=== PATIENT | male | born 1950 | race Caucasian/White ===

== ENCOUNTER 2017-06-01 16:38 | Inpatient (IN) | payer OTHER ==
[~2017-06-01] VITALS: Ht 182.9 cm; Wt 106.0 kg
--- NOTE | ~2017-06-01 | CO ---
Unit #: [id number] #: [id number] Patient: WILLIAM YUN [id number] [address] [address] [id number] I MR#: [id number] NAME: WILLIAM YUN. ROOM: 334 Age: 66 Sex: M Admission Date: 06/01/2017 : 1950 Attending Physician: Gerardo Pepper M.D. Primary Care Physician: Primary Care Physician No CONSULTATION REPORT REASON FOR CONSULTATION Ventricular tachycardia. HISTORY OF PRESENT ILLNESS This is a 66-year-old white male, who is known to Dr. Tobin Mack, who has a history of nonischemic cardiomyopathy, hypertension, and hyperlipidemia. He had a cardiac catheterization in 2003, where he was found to have only luminal irregularities. Stress test was done prior to the cardiac catheterization in which he had an ejection fraction of 24%. Cardiac catheterization, EF of 40%. The patient states he has had followup echocardiograms in the past as ordered per Dr. Mack 3 years ago where he "no longer has heart failure." The patient is admitted with urinary symptoms with burning with urination, fever, chills, nausea, and vomiting. He was found to have a gram-negative codie and has been treated for urinary tract infection and pyelonephritis. During the course of his stay, he has developed tachyarrhythmia which was concerned for ventricular tachycardia. The patient was unaware of palpitations. He has no symptoms of angina. He denies paroxysmal nocturnal dyspnea, orthopnea, or leg edema. He has no shortness of breath. The patient was on beta-shayna in the past, but was discontinued because of hypotension. PAST MEDICAL HISTORY 1. Adenosine Cardiolite stress test on 06/20/2004 showed an ejection fraction of 24% with prior inferior infarct. 2. Cardiac catheterization on 06/21/2004 shows ejection fraction of 40%. Left main normal. LAD, right coronary artery, and left circumflex arteries with minimal luminal irregularities. 3. Nonischemic cardiomyopathy. 4. Hypertension. 5. Hyperlipidemia. 6. Diabetes mellitus, type 2. 7. Obstructive sleep apnea. 8. History of TIA. 9. Former smoker. PAST SURGICAL HISTORY 1. Left knee surgery. 2. Right ankle surgery. SOCIAL HISTORY The patient is retired. He quit smoking in 2002. He also had a remote Unit #: [id number] #: [id number] Patient: WILLIAM YUN history of alcohol use and quit drinking in 2002 as well. He denies illicit drug use. FAMILY HISTORY Mother had heart disease. ALLERGIES No known drug allergies. HOME MEDICATIONS Metformin 500 mg daily, lisinopril 10 mg daily, aspirin 81 mg daily, Lipitor 40 mg daily, hydrochlorothiazide 5 mg daily. REVIEW OF SYSTEMS CONSTITUTIONAL: Has a recent fever and chills. Reports weakness and fatigue. HEENT: No headache. No hearing, vision changes, or difficulty with swallowing. No dizziness. CARDIOVASCULAR: Has no symptoms of angina. Denies palpitations. No paroxysmal nocturnal dyspnea or orthopnea. No syncope or near syncope. RESPIRATORY: Negative for dyspnea, cough, or hemoptysis. GASTROINTESTINAL: Reports abdominal discomfort, nausea, and vomiting. Had a recent diarrhea. EXTREMITIES: Negative for lower extremity edema. PHYSICAL EXAMINATION VITAL SIGNS: Blood pressure 125/72, heart rate 62, temperature 100.6. . GENERAL: This is a very pleasant 66-year-old, well-developed white male, who is in no acute respiratory distress. NEUROLOGIC: He is awake, alert, and oriented. There are no focal weaknesses. NECK: Trachea is midline. No thyromegaly or lymphadenopathy. No jugular distention. HEART: S1 and S2. Heart sounds are normal. No murmurs. No rubs or clicks. Regular rate and rhythm. LUNGS: Clear without rales, rhonchi, or wheeze. ABDOMEN: Slightly tender with palpation in the lower mid quadrant. Bowel sounds are present. No organomegaly. EXTREMITIES: With palpable pedal pulses without leg edema. SKIN: Warm and dry. DIAGNOSTIC STUDIES LABORATORY RESULTS: Glucose 107, BUN 11, creatinine 0.7. Sodium 138, potassium 3.4, magnesium 1.3 to 1.6. Troponin less than 0.03. CK total 83, MB 1.3, MB index 1.6. Hemoglobin A1c 4.5. TSH 0.52, free T4 0.81. White count 11.0, hemoglobin 13.4, hematocrit 39.1, platelet count is 142. IMAGING STUDIES: Chest x-ray on admission shows mild cardiomegaly, but no congestive heart failure. Probable chronic atelectasis. CT of the abdomen and pelvis shows no stone or hydronephrosis in either kidney. Questionable underlying proctitis. CARDIOVASCULAR: EKG; sinus tachycardia with a rate of 108 beats per minute with left axis deviation, left anterior fascicular block, and poor R-wave progression. Questionable old septal infarct. IMPRESSION 1. Acute pyelonephritis. Unit #: [id number] #: [id number] Patient: WILLIAM YUN 2. Gram-negative rods per urine culture. 3. Hypokalemia. 4. Hypomagnesemia. 5. Nonsustained ventricular tachycardia. 6. Normal coronaries per cardiac catheterization in 2003. 7. Chronic systolic heart failure with reduced ejection fraction of 40%. 8. Hypertension. 9. Hyperlipidemia. 10. Diabetes mellitus, type 2. PLAN 1. Cardiology was consulted for nonsustained ventricular tachycardia. The patient had a 12-beat run of ventricular tachycardia that is secondary to hypokalemia and hypomagnesemia. We will supplement electrolytes. 2. We will obtain 2D echocardiogram to re-evaluate left ventricular systolic function. 3. TSH will be done to rule out thyroid disease. 4. Follow up with Dr. Mack upon discharge. Thank you for allowing us to assist with this patient's care. Dictated by... Kallie Loomis/carissa TD: 06/03/2017 17:45 JOB #: [id number] CC: Tobin Mack M.D. CONSULTATION REPORT Page 1 of 1 X Aston Pedersen APRN X CONSULTATION REPORT
--- NOTE | ~2017-06-01 | DS ---
Unit #: [id number] #: [id number] Patient: WILLIAM YUN [id number] [address] [address] [id number] I MR#: [id number] NAME: WILLIAM YUN ROOM: 334 Age: 66 Sex: M Admission Date: 06/01/2017 : 1950 Discharge Date: 06/03/2017 Attending Physician: Gerardo ePpper M.D. Primary Care Physician: No Primary Care Physician DISCHARGE SUMMARY PERTINENT HISTORY AND HOSPITAL COURSE The patient is a 66-year-old man with a past medical history significant for hypertension, coronary artery disease, TIA, who presents with symptoms of difficulty urinating. During his admission, urine cultures grew Klebsiella pneumonia which was sensitive to Bactrim and sensitive to ceftriaxone. During his admission, he was treated with IV Rocephin, and he will be discharged on oral cefdinir 300 mg, one tablet twice daily for seven more days. Also, during his admission, he had a short run of nonsustained ventricular tachycardia. He had an echocardiogram for further evaluation that demonstrated ejection fraction of 35%. Cardiology was consulted and the patient was started on Coreg with the recommendation to follow up with his outpatient ship self defense system mk1 operator. DISCHARGE DIAGNOSES 1. Acute pyelocystitis. 2. Hypokalemia. 3. Hypomagnesemia. 4. Hypertension. 5. Nonsustained ventricular tachycardia. 6. Chronic systolic heart failure with reduced ejection fraction of 35%. DISCHARGE MEDICATIONS Include: 1. Coreg 3.125 mg tab, one p.o. b.i.d. 2. Cefdinir 300 mg tab, one p.o. b.i.d. for seven days. 3. Aspirin 81 mg p.o. daily. 4. Flomax 0.4 mg p.o. daily. 5. Metformin 500 mg p.o. daily. 6. Hydrochlorothiazide 5 mg p.o. daily. 7. Lipitor 40 mg p.o. daily. 8. Lisinopril 10 mg p.o. daily. DISCHARGE INSTRUCTIONS Follow with primary care physician. Follow up with ship self defense system mk1 operator in three months. Dictated by... Janel Morales/holley Unit #: [id number] #: [id number] Patient: WILLIAM YUN Devora TD: 06/04/2017 12:04 JOB #: [id number] DISCHARGE SUMMARY Page 1 of 1 X X DISCHARGE SUMMARY
--- NOTE | ~2017-06-01 | CR72 ---
[facility] A Service of [facility] RADIOLOGY TEXT RESULTS PATIENT: WILLIAM YUN LOCATION: [facility] 334- : 49 UNIT #: [id number] AGE: [address]: CARLOS SNOWUJ V SEX: M ORDER DR: [id number] [facility] [address] [facility] [place], [place] [address] [id number] I MR#: [id number] Acc #: [id number] NAME: WILLIAM YUN. : 1950 SEX: M STUDY DATE/TIME: 06/01/2017 17:19 UNIT: [address] ROOM: [facility] STUDY DESCRIPTION: CR Chest Single View Portable Attending Physician: Kaycee Artis M.D. Ordering Physician: Cesar Fitch M.D. Primary Care Physician: Primary Care Physician No MEDICAL IMAGING REPORT This report is preliminary unless electronic signature is present EXAM Frontal chest, 06/01/2017 INDICATION 66-year-old male with fever, dysuria, mild chest congestion today. TECHNIQUE Frontal chest compared with 04/03/2010. FINDINGS Cardiac silhouette is borderline enlarged and stable. Lung volumes are low and there is bronchovascular crowding. There is old healed granulomatous disease. Probable chronic atelectasis or scarring in the lung bases. No pneumothorax. IMPRESSION Borderline to mild cardiomegaly with old healed granulomatous disease and chronic lung changes. Dictated by... Kunal Estrada M.D. THIS IS AN ELECTRONICALLY VERIFIED REPORT Kunal Estrada M.D. at 06/02/2017 11:41 AM Keren TD: 06/02/2017 04:24 JOB #: [id number] MEDICAL IMAGING REPORT Page 1 of 1 COPY
--- NOTE | ~2017-06-01 | EKG ---
PATIENT: WILLIAM YUN UNIT #: [id number] Ventricular Rate: 106 BPM Atrial Rate: 106 BPM P-R Interval: 178 ms QRS Duration: 102 ms Q-T Interval: 336 ms QTC Calculation(Bezet): 446 ms P Encinal: 56 degrees Calculated R Encinal: -38 degrees Calculated T Encinal: 105 degrees Diagnosis Line: Sinus tachycardia Diagnosis Line: Left axis deviation Diagnosis Line: Left ventricular hypertrophy with repolarization Diagnosis Line: abnormality Diagnosis Line: Cannot rule out Septal infarct , age undetermined Diagnosis Line: Abnormal ECG Diagnosis Line: When compared with ECG of 03-APR-2010 21:24, Diagnosis Line: Significant changes have occurred Diagnosis Line: Confirmed by JORGE ALBERTO VAZQUEZ MD ([id number]) on 06/04/2017 Diagnosis Line: 7:51:19 AM INTERPRETING MD: GEORGE GLORIA
--- NOTE | ~2017-06-01 | CT4 ---
[facility] A Service of [facility] RADIOLOGY TEXT RESULTS PATIENT: WILLIAM YUN LOCATION: [facility] 334- : [birth year] UNIT #: [id number] AGE: [address]: CARLOS SNOWUJ V SEX: M ORDER DR: [id number] [facility] [address] [facility]. [place], [place] [address] [id number] I MR#: [id number] Acc #: [id number] NAME: WILLIAM YUN. : 1950 SEX: M STUDY DATE/TIME: 06/01/2017 18:27 UNIT: C3A PCU ROOM: [facility] STUDY DESCRIPTION: CT Abd and Pelv Wo Cont Attending Physician: Kaycee Artis M.D. Ordering Physician: Cesar Fitch M.D. Primary Care Physician: Primary Care Physician No MEDICAL IMAGING REPORT This report is preliminary unless electronic signature is present EXAM Abdomen and pelvis CT no contrast, 06/01/2017 INDICATION Dysuria, burning in the abdomen since yesterday. History of diabetes and hypertension. Pelvic area pain today. TECHNIQUE Noncontrast abdomen and pelvis CT was performed. No relevant comparisons. This CT exam was performed with one or more of the following radiation dose reduction techniques: automatic exposure control, adjustment of mA and/or kV according to patient size, and iterative reconstruction. FINDINGS Exam markedly degraded by noncontrast technique. Included lung bases demonstrate atelectasis. There is pulmonary hyperinflation. No effusion. Aorta is tortuous. Spleen adrenal glands pancreas unremarkable. There is uncomplicated cholelithiasis. Liver unremarkable. No hydronephrosis or radiopaque stone associate with either kidney. CT PELVIS: Bladder unremarkable. The prostate is enlarged. There is some stranding around the prostate which may reflect prostatitis in the appropriate clinical context. Correlate with urinalysis and PSA levels with respect to prostatic size. Stool ball in the rectum suggestive of constipation or early sequela of fecal impaction. No drainable fluid collection in the pelvis. There is diverticulosis. Appendix normal. Inguinal canals are unremarkable. There are degenerative changes in the thoracolumbar spine. [facility] A Service of [facility] RADIOLOGY TEXT RESULTS PATIENT: WILLIAM YUN LOCATION: A 334-01 : [birth year] UNIT #: [id number] AGE: [address]: DALILA SNOW V SEX: M ORDER DR: IMPRESSION 1. No radiopaque stone or hydronephrosis of either kidney. 2. The prostate is enlarged and there are some features to suggest an element of underlying prostatitis. Correlate with urinalysis. 3. Imaging features most characteristic constipation with a stool ball in the rectum. Correlate clinically for any sign or symptom of fecal impaction. 4. Uncomplicated diverticulosis. 5. Uncomplicated cholelithiasis. 6. Appendix normal. Dictated by... Kunal Estrada M.D. THIS IS AN ELECTRONICALLY VERIFIED REPORT Kunal Estrada M.D. at 06/02/2017 11:44 AM Keren TD: 06/02/2017 05:26 JOB #: [id number] MEDICAL IMAGING REPORT Page 1 of 1 COPY
--- NOTE | ~2017-06-01 | HP ---
Unit #: [id number] #: [id number] Patient: WILLIAM YUN [id number] [address] [facility]. [place], [place] [address] [id number] MR#: [id number] NAME: WILLIAM YUN ROOM: Age: 66 Sex: M Admission Date: 06/01/2017 : 1950 Attending Physician: Cesar Fitch M.D. Primary Care Physician: No Primary Care Physician HISTORY AND PHYSICAL CHIEF COMPLAINT Cannot urinate, brady too bad. HISTORY OF PRESENT ILLNESS The patient is a 66-year-old male with past medical history of hypertension, coronary artery disease, TIA, diabetes, obstructive sleep apnea, who presented to the emergency department for evaluation of the above. The patient states that he has had a two to three day history of burning with urination. Today he states that he had difficulty urinating more than a few drops. He has had fever and chills. He also reports nausea and vomiting. He denies any diarrhea. He has had pain in the left flank area as well as the lower abdomen. In the emergency department, initial temperature was 99.4, pulse 112. Urinalysis showed findings concerning for urinary tract infection. He was given 1 g of Rocephin as well as 2 L of normal saline, 4 mg of Zofran and a gram of Tylenol. He is being admitted to [facility] for evaluation and further treatment. CT of the abdomen and pelvis is pending at the time of this dictation. PAST MEDICAL HISTORY 1. Admission to [facility] November 21, 2008 for chest pain. 2. Obstructive sleep apnea, on BiPAP, followed by Dr. Corona. 3. Coronary artery disease, followed by Dr. Mack. The patient had a stress test June 20, 2004 that was abnormal. Severe LV dysfunction with an ejection fraction of 24% was also noted. 4. Congestive heart failure with ejection fraction as noted above. The patient states that he no longer has heart failure. There is no echocardiogram in [facility]. Ejection fraction was 24% in 2003. 5. History of TIA. 6. Diabetes. PAST SURGICAL HISTORY 1. Left knee surgery. 2. Right ankle surgery. 3. Cardiac catheterization. SOCIAL HISTORY The patient has a history of alcoholism. His last drink was in 2002. He attends AA meetings. He is a former smoker. He quit in 2002. He lives alone. He walks without assistance. His code status is a Full Code. Unit #: [id number] #: [id number] Patient: WILLIAM YUN FAMILY HISTORY Family history is notable for his mother having diabetes. ALLERGIES No known allergies. HOME MEDICATIONS Include: 1. Metformin 500 mg daily. 2. Lisinopril 10 mg daily. 3. Aspirin 81 mg daily. 4. Lipitor 40 mg daily. 5. Hydrochlorothiazide listed as 5 mg daily. REVIEW OF SYSTEMS A complete review of systems is negative except as indicated in the HPI. The patient states that his blood sugars typically range from 78 to less than 200. DIAGNOSTIC STUDIES CARDIOVASCULAR: EKG shows sinus tachycardia with a rate of 106 beats per minute. IMAGING: Chest x-ray shows mild cardiomegaly. CT of the abdomen and pelvis is pending. LABORATORY: Comprehensive metabolic panel notable for potassium of 3.2, glucose is 111, total bilirubin 2.1, phosphorus is 1.8, amylase and lipase are 50 and 58 respectively, magnesium is 1.4, lactic acid 1.3, INR is 1. Complete blood count notable for white blood cell count of 12.3. Troponin is less than 0.05. Urinalysis notable for 2+ leukocyte esterase, 50 to 100 white blood cells, 4+ bacteria, no squamous cells. PHYSICAL EXAMINATION VITAL SIGNS: Temperature is 99.4. Pulse 112. Respirations 16. Blood pressure 130/90. Oxygen saturation is 97% on room air. GENERAL: The patient is a very pleasant white male who is awake and alert, in no acute distress. HEENT: The head is atraumatic. Mucous membranes are dry. NECK: Neck is supple. Trachea is midline. CARDIOVASCULAR: Regular rate and rhythm. LUNGS: Lungs are clear to auscultation bilaterally with no increased work of breathing. ABDOMEN: Abdomen is soft. He is tender to palpation in the suprapubic area. Bowel sounds are present all four quadrants. EXTREMITIES: Nontender, with no pedal edema. NEUROLOGIC: The patient is awake and alert. He follows commands. PSYCHIATRIC: Mood and affect are normal. The patient is cooperative. SKIN: Skin of examined areas is warm and dry. GENITOURINARY: The patient does have left costovertebral angle tenderness to palpation. ASSESSMENT The patient is a 66-year-old male with: 1. Urinary tract infection. There are no urine cultures in [facility] for review. The patient received Rocephin in the emergency department. Unit #: [id number] #: [id number] Patient: WILLIAM YUN 2. Sepsis with initial lactic acid of 1.3. The patient received 2 L of normal saline in the emergency department. 3. Hypokalemia. 4. Hypomagnesemia. 5. Hypophosphatemia. 6. Hypertension. 7. Coronary artery disease, followed by Dr. Mack. 8. Transient ischemic attack. 9. Obstructive sleep apnea on BiPAP, followed by Dr. Corona. 10. Former smoker. 11. History of alcohol abuse. 12. History of congestive heart failure with ejection fraction as noted above. However, that ejection fraction was from 2003. PLAN 1. Admit to intermediate level. 2. N.p.o. until results of CT abdomen and pelvis. 3. Followup results of CT abdomen and pelvis. 4. Sepsis protocol with repeat lactic acid. 5. Blood cultures x2. 6. Urine culture and sensitivity on urine in the lab. 7. Rocephin 1 g IV daily pending result of urine culture. 8. Normal saline at 75 mL an hour. 9. Potassium and magnesium protocol. 10. Replace phosphorus. 11. Serial cardiac enzymes. 12. Hemoglobin A1C. 13. Low dose sliding scale insulin with Accu-Cheks. 14. BiPAP at home settings. 15. P.r.n. Tylenol. 16. SCDs for DVT prophylaxis. 17. Repeat labs in the morning including magnesium, phosphorus, amylase and lipase. 18. SCDs for DVT prophylaxis. 19. Regarding code status, the patient is a Full Code. 20. Additional workup and consultants based on above. Dictated by Janel Alfred/sahra TD: 06/01/2017 19:36 JOB #: [id number] Unit #: [id number] #: [id number] Patient: WILLIAM YUN HISTORY AND PHYSICAL Page 1 of 1 X Kaycee Artis MD X HISTORY AND PHYSICAL
[~2017-06-01 16:38] MED LIST: ASPIRIN PO; ASPIRIN81 M1 PO; ATENOLOL PO; CADUET 10 MG/401 TAB PO; COLACE PO; COUMADIN PO; HCTZ PO; KETOPROFEN PO; LISINOPRIL PO; LISINOPRIL20 MG PO; LORTAB 7.5-5001 TAB PO; MEVACOR PO; MOBIC PO; NORVASC PO; PEN-VEE K PO; TYLENOL PM; VICODIN 5/1 TAB 5/50 PO; VICODIN 5/500 T1 TAB PO
[2017-06-01 17:14] LABS: CULTURE INDICATED? YES; URINE APPEARANCE CLEAR; URINE BACTERIA AUWI 4+ (NEGATIVE); URINE BILIRUBIN NEG (NEG); URINE BLOOD NEG (NEG); URINE COLOR YELLOW; URINE GLUCOSE 100 MG/DL (NEG); URINE KETONE NEG (NEG); URINE LEUKOCYTE ESTERASE 2+ (NEG); URINE NITRATE NEG (NEG); URINE PH 8.5 (5-8); URINE PROTEIN NEG (NEG); URINE SOURCE CLEAN CATCH; URINE SPECIFIC GRAVITY 1.017 (1.003-1.035); URINE SQUAMOUS EPITHELIAL CELL NONE SEEN /[HPF]; UWBCS1 AUWI 50-100 (0-5)
[2017-06-01 17:31] LABS: BASOPHIL% 0.3 % (0-2.5); EOSINOPHIL% 0.1 % (0.0-7.0); HEMATOCRIT 42.9 % (38.0-50.0); HEMOGLOBIN 14.9 gm/dL (13.0-16.0); LYMPHOCYTE# 1.1 X10e3 (1.0-3.5); LYMPHOCYTE% 8.9 % (17.0-45.0); MEAN CELL VOLUME 94.1 FL (83-96); MEAN CORPUSCULAR HEMOGLOBIN 32.6 PG (28-34); MEAN CORPUSCULAR HGB CONC 34.6 g/dL (30-36); MEAN PLATELET VOLUME 8.1 FL (6.5-11.5); MONOCYTE# 0.8 X10e3 (0-1.0); MONOCYTE% 6.8 % (3.0-12.0); NEUTROPHIL# 10.3 X10e3 (1.5-7.1); NEUTROPHIL% 83.9 % (40-75); PLATELET COUNT 165 X10e3 (140-420); RED BLOOD COUNT 4.56 X10e (3.90-5.60); RED CELL DISTRIBUTION WIDTH 13.4 % (11.0-15.5); WHITE BLOOD COUNT 12.3 X10e3 (4.0-10.5)
[2017-06-01 17:33] LABS: POC - CKMB <1.0 ng/mL (0.0-7.9); POC - TROPONIN <0.05 ng/mL (<=0.05)
[2017-06-01 17:38] LABS: DIFF IND NO
[2017-06-01 17:46] LABS: PARTIAL THROMBOPLASTIN TIME 27.6 SECONDS (23.5-31.3); PROTHROMBIN TIME (PATIENT) 11.1 SECONDS (10.0-11.7)
[2017-06-01 17:53] LABS: ALBUMIN SERUM 4.3 g/dL (3.5-5.0); BILIRUBIN, DIRECT 0.3 mg/dL (0.0-0.2); BILIRUBIN,INDIRECT 1.8 mg/dL (0.0-0.9); BILIRUBIN,TOTAL 2.1 mg/dL (0.2-2.0); BUN/CREATININE RATIO 16.25; CALCIUM SERUM 9.2 mg/dL (8.4-10.2); CREATININE SERUM 0.8 mg/dL (0.6-1.4); GLOM FILT RATE Estimated 92.5 mL/min (>60); MAGNESIUM 1.4 mg/dL (1.6-3.0); PHOSPHOROUS 1.8 mg/dL (2.5-4.6); POTASSIUM 3.2 mmol/L (3.5-5.1); PROTEIN TOTAL SERUM 7.4 g/dL (6.0-8.3)
[2017-06-01] MEDS ORDERED: METFORMIN HCL500 M1 PO (18:03)
[2017-06-01] MEDS ORDERED: ASPIRIN81 MG PO (18:04)
[2017-06-01] MEDS ORDERED: LISINOPRIL10 MG PO (18:04)
[2017-06-01] MEDS ORDERED: LIPITOR40 MG PO (18:05)
[2017-06-01] MEDS ORDERED: HCTZ PO (18:07)
[2017-06-02 00:04] LABS: %MB 1.3 % (0.0-4.0)
[2017-06-02 05:37] LABS: BASOPHIL% 0.2 % (0-2.5); HEMATOCRIT 39.1 % (38.0-50.0); HEMOGLOBIN 13.4 gm/dL (13.0-16.0); LYMPHOCYTE# 0.6 X10e3 (1.0-3.5); LYMPHOCYTE% 5.9 % (17.0-45.0); MEAN CELL VOLUME 94.4 FL (83-96); MEAN CORPUSCULAR HEMOGLOBIN 32.5 PG (28-34); MEAN CORPUSCULAR HGB CONC 34.4 g/dL (30-36); MEAN PLATELET VOLUME 8.2 FL (6.5-11.5); MONOCYTE# 0.6 X10e3 (0-1.0); MONOCYTE% 5.9 % (3.0-12.0); NEUTROPHIL# 9.7 X10e3 (1.5-7.1); RED BLOOD COUNT 4.14 X10e (3.90-5.60); RED CELL DISTRIBUTION WIDTH 13.6 % (11.0-15.5)
[2017-06-02 05:54] LABS: DIFF IND YES
[2017-06-02 05:56] LABS: PLATELET ESTIMATE NORMAL (NORMAL); RBC NORMAL YES
[2017-06-02 06:20] LABS: ALBUMIN SERUM 3.3 g/dL (3.5-5.0); BILIRUBIN,TOTAL 2.9 mg/dL (0.2-2.0); BUN/CREATININE RATIO 15.71; CALCIUM SERUM 8.1 mg/dL (8.4-10.2); CREATININE SERUM 0.7 mg/dL (0.6-1.4); GLOM FILT RATE Estimated 97.7 mL/min (>60); MAGNESIUM 1.3 mg/dL (1.6-3.0); PHOSPHOROUS 2.9 mg/dL (2.5-4.6); POTASSIUM 3.2 mmol/L (3.5-5.1); PROTEIN TOTAL SERUM 5.8 g/dL (6.0-8.3)
[2017-06-02 07:00] LABS: %MB 1.6 % (0.0-4.0); MB 1.3 ng/ml
[2017-06-02 15:52] LABS: AMPHETAMINE NEG (NEG); BARBITURATES NEG (NEG); BENZODIAZEPINES NEG (NEG); COCAINE NEG (NEG); MARIJUANA NEG (NEG); OPIATES NEG (NEG); TRICYCLIC ANTIDEPRESSANTS NEG (NEG); U METHADONE NEG (NEG)
[2017-06-02 16:36] LABS: THYROID STIMULATING HORMONE 0.52 uIU/ml (0.34-5.60)
[2017-06-02 16:42] LABS: FREE THYROXIN (T4) 0.81 ng/dL (0.58-1.64)
[2017-06-03] MEDS ORDERED: FLOMAX0.4 M1 PO (00:51)
[2017-06-03 06:01] LABS: MAGNESIUM 1.8 mg/dL (1.6-3.0); POTASSIUM 3.5 mmol/L (3.5-5.1)
[2017-06-03] MEDS ORDERED: COREG3.125 MG PO (17:38)
[2017-06-03] MEDS ORDERED: CEFDINIR300 M1 PO (17:39)
== END 2017-06-03 18:51 | disposition home or self-care (01) | DRG 690 ==
LOC: CED 16:38 → C3A PCU 19:15 → CED 19:19 → C3A PCU 19:19
PROVIDERS: Emergency Medicine; Internal Medicine
PROC: B24BZZZ Ultrasonography of Heart with Aorta (ICD-10-PCS; principal; 2017-06-03)
DX: N10 Acute pyelonephritis (principal); I47.2 Ventricular tachycardia; E83.42 Hypomagnesemia; I11.0 Hypertensive heart disease with heart failure; I50.22 Chronic systolic (congestive) heart failure; E87.6 Hypokalemia; I25.10 Atherosclerotic heart disease of native coronary artery without angina pectoris; G47.33 Obstructive sleep apnea (adult) (pediatric); E83.39 Other disorders of phosphorus metabolism; E11.9 Type 2 diabetes mellitus without complications; Z79.84 Long term (current) use of oral hypoglycemic drugs; E78.5 Hyperlipidemia, unspecified; Z86.73 Personal history of transient ischemic attack (TIA), and cerebral infarction without residual deficits; Z79.82 Long term (current) use of aspirin; Z87.891 Personal history of nicotine dependence; Z82.49 Family history of ischemic heart disease and other diseases of the circulatory system
CPT/HCPCS: 36415; 71010; 74176; 80048; 80053; 80076; 80307; 81003; 82150; 82550; 82553; 82947; 83036; 83605; 83690; 83735; 84100; 84132; 84300; 84439; 84443; 84484; 85025; 85610; 85730; 87040; 87086; 87088; 87186; 93005; 93306; 94760; 99285; J0696; J2405; J3475